=== PATIENT | female | born 1960 | race Caucasian/White ===

== ENCOUNTER 2022-12-10 17:09 | Inpatient (IN) | payer MEDICARE, OTHER ==
[~2022-12-10] VITALS: Ht 170.2 cm; Wt 54.4 kg
[2022-12-10 18:30] LABS: BASOPHILS # (AUTO) 0.1 K/uL (0.0-0.2); EOSINOPHILS # (AUTO) 0.3 K/uL (0.0-0.7); EOSINOPHILS % (AUTO) 1.8 % (0.0-6.0); HEMATOCRIT 22 % (33-45); LYMPHOCYTES # (AUTO) 1.6 K/uL (0.8-4.8); LYMPHOCYTES % (AUTO) 10.3 % (20.0-44.0); MEAN CORPUSCULAR HEMOGLOBIN 24 PG (26.0-33.0); MEAN CORPUSCULAR HGB CONC 32 g/dl (31.0-36.0); MEAN CORPUSCULAR VOLUME 75 fL (82-100); MONOCYTES # (AUTO) 0.9 K/uL (0.1-1.30); MONOCYTES % (AUTO) 5.8 % (2.0-12.0); NEUTROPHILS # (AUTO) 12.6 K/uL (1.8-8.9); NEUTROPHILS % (AUTO) 81.1 % (43.0-81.0); PLATELET COUNT (AUTO) 780 K/uL (150-450); RED BLOOD CELL COUNT(AUTO) 2.94 MIL/uL (4.0-5.2); RED CELL DISTRIBUTION WIDTH 24.6 % (11.5-15.0); WHITE BLOOD COUNT (AUTO) 15.5 K/uL (4.3-11.0)
[2022-12-10 18:41] LABS: INR 1.01 (0.91-1.10); PARTIAL THROMBOPLASTIN TIME 26.5 SEC (24.3-34.3); PROTHROMBIN TIME 10.6 SECS (9.2-11.1)
[2022-12-10 18:53] LABS: CALCIUM, SERUM 8.6 mg/dL (8.5-10.1); CREATININE 0.7 mg/dL (0.6-1.3); POTASSIUM 3.6 mmol/L (3.5-5.1)
[2022-12-10] MEDS ORDERED: ACETAMINOPHEN 325 MG TABLET PO ONE (19:00)
[2022-12-10] MEDS ORDERED: MORPHINE SULFATE INJ 2 MG/ML DISP.SYRIN IV ONE (19:00)
[2022-12-10] MEDS ORDERED: IOHEXOL-350 100 ML VIAL IV ONE (19:07)
[2022-12-10] MEDS ORDERED: IV NS 0.9% 250 ML IV ONE (19:07)
[2022-12-10] MEDS ORDERED: ACETAMINOPHEN 325 MG TABLET ONE (19:16)
[2022-12-10] MEDS ORDERED: MORPHINE SULFATE INJ 4 MG/ML DISP.SYRIN ONE (19:16)
[2022-12-10] MEDS ORDERED: QUET400T PO (19:17)
[2022-12-10] MEDS ORDERED: GENTLE IRON PO (19:17)
[2022-12-10] MEDS ORDERED: FLUT1DIS3 IH (19:17)
[2022-12-10] MEDS ORDERED: TEMA15CA5 PO (19:17)
[2022-12-10] MEDS ORDERED: GUAI-1189 PO (19:17)
[2022-12-10] MEDS ORDERED: CLON1TAB12 PO (19:17)
[2022-12-10] MEDS ORDERED: GABA-532 PO (19:17)
[2022-12-10] MEDS ORDERED: DIPH25TA25 PO (19:17)
[2022-12-10] MEDS ORDERED: SUCR1ORA15 PO (19:17)
[2022-12-10] MEDS ORDERED: MULT-594 PO (19:17)
[2022-12-10] MEDS ORDERED: ONDA4TAB5 PO (19:17)
[2022-12-10] MEDS ORDERED: MAG-151 PO (19:17)
[2022-12-10] MEDS ORDERED: ALBU8.5H8 IH (19:17)
[2022-12-10] MEDS ORDERED: ACET-868 PO (19:17)
[2022-12-10 19:57] LABS: LACTIC ACID 1.2 mmol/L (0.4-2.0)
[2022-12-10] MEDS ORDERED: PIPERACILLIN /TAZOBACTAM 3.375 G in IV D5W 50 ML IV ONE (20:00)
[2022-12-10 20:25] LABS: EOSINOPHILS % (MANUAL) 1 % (0-4); LYMPHOCYTES % (MANUAL) 10 % (16-48); NEUTROPHILS % (MANUAL) 89 (42-76)
[2022-12-10 20:27] LABS: ANISOCYTOSIS 1+; HYPOCHROMASIA 1+; PLATELET ESTIMATE INCREASED
[2022-12-10 20:28] LABS: OVALOCYTES 1+
[2022-12-10] MEDS ORDERED: PIPERACI/TAZO 3.375GM/D5W 50ML PB IV ONE (20:54)
[2022-12-10 23:00] VITALS: BP 121/74; TEMP 99.7; O2SAT 94
[2022-12-10] MEDS ORDERED: MAG HYDROX/AL HYDROX/SIMETH 30 ML UDC PO PRN (23:30)
[2022-12-10] MEDS ORDERED: MAGNESIUM HYDROXIDE 30 ML UDC PO PRN (23:30)
[2022-12-10] MEDS ORDERED: ENOXAPARIN SODIUM 40 MG/0.4 ML DISP.SYRIN SQ SCH (23:30)
[2022-12-10] MEDS ORDERED: ZOLPIDEM TARTRATE 5 MG TABLET PO PRN (23:30)
[2022-12-10] MEDS ORDERED: ACETAMINOPHEN 325 MG TABLET PO PRN (23:30)
[2022-12-10] MEDS ORDERED: Z GUARD REMEDY 4 OZ OINT TP PRN (23:30)
[2022-12-10 23:40] LABS: ALBUMIN 1.9 g/dL (3.4-5.0); BILIRUBIN,DIRECT 0.1 mg/dL (0.0-0.2); BILIRUBIN,TOTAL 0.2 mg/dL (0.2-1.0)
[2022-12-10] MEDS: IV D5/0.45 NACL 1,000 ML IV SCH (23:42)
[2022-12-11] VITALS (11 sets, daily range): BP systolic 108–138; BP diastolic 60–75; TEMP 97.8–98.7; O2SAT 93–97
[2022-12-11] MEDS: MORPHINE SULFATE INJ 2 MG/ML DISP.SYRIN IV PRN ×4 (02:59→18:37)
[2022-12-11] MEDS ORDERED: ZOSYN IVPB 3.375 G in IV D5W 50ml IV ONE (03:00)
[2022-12-11] MEDS ORDERED: PIPERACI/TAZO 3.375GM/D5W 50ML PB IV ONE (04:17)
[2022-12-11 05:53] LABS: BASOPHILS # (AUTO) 0.2 K/uL (0.0-0.2); BASOPHILS % (AUTO) 1.7 % (0.0-2.0); EOSINOPHILS # (AUTO) 0.5 K/uL (0.0-0.7); EOSINOPHILS % (AUTO) 3.7 % (0.0-6.0); HEMATOCRIT 24 % (33-45); HEMOGLOBIN 7.6 g/dL (11.5-14.8); LYMPHOCYTES # (AUTO) 1.5 K/uL (0.8-4.8); LYMPHOCYTES % (AUTO) 10.9 % (20.0-44.0); MEAN CORPUSCULAR HEMOGLOBIN 24 PG (26.0-33.0); MEAN CORPUSCULAR HGB CONC 32 g/dl (31.0-36.0); MEAN CORPUSCULAR VOLUME 77 fL (82-100); MONOCYTES # (AUTO) 1.4 K/uL (0.1-1.30); MONOCYTES % (AUTO) 10.1 % (2.0-12.0); NEUTROPHILS # (AUTO) 10.2 K/uL (1.8-8.9); NEUTROPHILS % (AUTO) 73.6 % (43.0-81.0); PLATELET COUNT (AUTO) 621 K/uL (150-450); RED BLOOD CELL COUNT(AUTO) 3.11 MIL/uL (4.0-5.2); RED CELL DISTRIBUTION WIDTH 22.1 % (11.5-15.0); WHITE BLOOD COUNT (AUTO) 13.9 K/uL (4.3-11.0)
[2022-12-11 06:26] LABS: THYROID STIMULATING HORMONE 2.562 uIU/mL (0.358-3.74)
[2022-12-11] MEDS ORDERED: GABAPENTIN 100 MG CAPSULE PO PRN (06:30)
[2022-12-11] MEDS ORDERED: ACETAMINOPHEN 325 MG TABLET PO PRN (06:30)
[2022-12-11 07:19] LABS: CREATININE 0.5 mg/dL (0.6-1.3); PHOSPHORUS 2.7 mg/dL (2.5-4.9); POTASSIUM 3.5 mmol/L (3.5-5.1)
[2022-12-11] MEDS: PANTOPRAZOLE 40 MG VIAL IV SCH (08:11)
[2022-12-11] MEDS ORDERED: ALBUTEROL FS 2.5 MG/0.5 ML VIAL.NEB NEB PRN (08:30)
[2022-12-11] MEDS ORDERED: GUAIFENESIN/D-METHORPHAN HB 5 ML UDC PO PRN (09:00)
[2022-12-11] MEDS ORDERED: GENTLE IRON PO SCH (09:00)
[2022-12-11] MEDS ORDERED: ONDANSETRON 4 MG TAB.RAPDIS PO PRN (09:00)
[2022-12-11] MEDS: clonazePAM 1 MG TABLET PO SCH ×2 (09:39→16:46)
[2022-12-11] MEDS: SUCRALFATE 1 G/10 ML UDC PO SCH ×3 (09:39→16:46)
[2022-12-11] MEDS: diphenhydrAMINE HCL 25 MG CAPSULE PO SCH (09:39)
[2022-12-11] MEDS: MULTIVITAMINS,THERAGRAN 1 UDTAB TABLET PO SCH ×2 (09:39→16:46)
[2022-12-11] MEDS: FLUTICASONE/VILANTEROL 1 EACH BLST.W.DEV IH SCH (09:40)
[2022-12-11] MEDS: ONDANSETRON HCL/PF 4 MG/2 ML VIAL IVP PRN (09:56)
[2022-12-11] MEDS: IV D5/0.45 NACL 1,000 ML IV SCH ×2 (09:58→20:20)
[2022-12-11] MEDS: ZOSYN IVPB 3.375 G in IV D5W 50ml IV SCH ×3 (11:53→21:12)
[2022-12-11] MEDS ORDERED: MAG HYDROX/AL HYDROX/SIMETH 30 ML UDC PO PRN (13:30)
[2022-12-11] MEDS: QUETIAPINE FUMARATE 100 MG TABLET PO SCH (21:07)
[2022-12-11] MEDS: TEMAZEPAM 15 MG CAPSULE PO SCH (21:08)
[2022-12-12 01:01] VITALS: BP 113/55; TEMP 98; O2SAT 96
[2022-12-12] MEDS: MORPHINE SULFATE INJ 2 MG/ML DISP.SYRIN IV PRN ×5 (04:30→22:43)
[2022-12-12] MEDS: ZOSYN IVPB 3.375 G in IV D5W 50ml IV SCH ×4 (04:31→21:08)
[2022-12-12 05:24] VITALS: BP 113/69; TEMP 98; O2SAT 93
[2022-12-12] MEDS: IV D5/0.45 NACL 1,000 ML IV SCH ×3 (05:39→22:54)
[2022-12-12 06:14] LABS: BASOPHILS % (AUTO) 0.5 % (0.0-2.0); EOSINOPHILS # (AUTO) 0.6 K/uL (0.0-0.7); EOSINOPHILS % (AUTO) 6.6 % (0.0-6.0); HEMATOCRIT 24 % (33-45); HEMOGLOBIN 7.6 g/dL (11.5-14.8); LYMPHOCYTES # (AUTO) 1.5 K/uL (0.8-4.8); LYMPHOCYTES % (AUTO) 16.2 % (20.0-44.0); MEAN CORPUSCULAR HEMOGLOBIN 25 PG (26.0-33.0); MEAN CORPUSCULAR HGB CONC 32 g/dl (31.0-36.0); MEAN CORPUSCULAR VOLUME 77 fL (82-100); MONOCYTES % (AUTO) 11.1 % (2.0-12.0); NEUTROPHILS % (AUTO) 65.6 % (43.0-81.0); PLATELET COUNT (AUTO) 574 K/uL (150-450); RED CELL DISTRIBUTION WIDTH 21.9 % (11.5-15.0); WHITE BLOOD COUNT (AUTO) 9.1 K/uL (4.3-11.0)
[2022-12-12 07:00] VITALS: BP 109/56; TEMP 98.3; O2SAT 93
[2022-12-12 07:36] LABS: ALBUMIN 1.5 g/dL (3.4-5.0); BILIRUBIN,TOTAL 0.3 mg/dL (0.2-1.0); CALCIUM, SERUM 7.9 mg/dL (8.5-10.1); CREATININE 0.5 mg/dL (0.6-1.3); MAGNESIUM 1.6 mg/dL (1.8-2.4); PHOSPHORUS 2.9 mg/dL (2.5-4.9); TOTAL PROTEIN, SERUM 5.1 g/dL (6.4-8.2)
[2022-12-12] MEDS: SUCRALFATE 1 G/10 ML UDC PO SCH (08:29)
[2022-12-12] MEDS: diphenhydrAMINE HCL 25 MG CAPSULE PO SCH (08:30)
[2022-12-12] MEDS: clonazePAM 1 MG TABLET PO SCH ×2 (08:30→17:11)
[2022-12-12] MEDS: PANTOPRAZOLE 40 MG VIAL IV SCH (08:30)
[2022-12-12] MEDS: MULTIVITAMINS,THERAGRAN 1 UDTAB TABLET PO SCH ×3 (08:30→17:11)
[2022-12-12] MEDS: FLUTICASONE/VILANTEROL 1 EACH BLST.W.DEV IH SCH (08:41)
[2022-12-12] MEDS: ONDANSETRON HCL/PF 4 MG/2 ML VIAL IVP PRN ×2 (09:06→15:22)
[2022-12-12] MEDS ORDERED: ANESTHESIA TRAY IN PYXIS 1 EA TRAY MC ONE (12:33)
[2022-12-12] MEDS: SUCRALFATE 1 G TABLET PO SCH ×3 (12:54→17:11)
[2022-12-12] MEDS ORDERED: Magnesium 1GM/D5W 100ML PREMIX 100 ML IV SCH (13:30)
[2022-12-12] MEDS ORDERED: POTASSIUM CL. PREMIX PERIPHER. 50 ML IV SCH (13:30)
[2022-12-12 16:00] VITALS: BP 107/57; TEMP 98.6; O2SAT 100
[2022-12-12] MEDS ORDERED: POTASSIUM CHLORIDE 20 MEQ POWDER PACKET PO SCH (16:00)
[2022-12-12] MEDS: MAGNESIUM OXIDE 400 MG TABLET PO ONE ×2 (16:30→17:12)
[2022-12-12 20:00] VITALS: BP 92/55; TEMP 98.1; O2SAT 94
[2022-12-12] MEDS: QUETIAPINE FUMARATE 100 MG TABLET PO SCH (21:09)
[2022-12-12] MEDS: TEMAZEPAM 15 MG CAPSULE PO SCH (21:09)
[2022-12-12 22:00] VITALS: BP 92/55; TEMP 98.1; O2SAT 94
[2022-12-13] MEDS: ZOSYN IVPB 3.375 G in IV D5W 50ml IV SCH ×3 (05:00→10:02)
[2022-12-13] MEDS: MORPHINE SULFATE INJ 2 MG/ML DISP.SYRIN IV PRN ×2 (05:51→09:51)
[2022-12-13 06:53] LABS: BASOPHILS % (AUTO) 0.7 % (0.0-2.0); EOSINOPHILS # (AUTO) 0.7 K/uL (0.0-0.7); EOSINOPHILS % (AUTO) 10.9 % (0.0-6.0); HEMATOCRIT 24 % (33-45); HEMOGLOBIN 7.6 g/dL (11.5-14.8); LYMPHOCYTES # (AUTO) 1.8 K/uL (0.8-4.8); LYMPHOCYTES % (AUTO) 26.4 % (20.0-44.0); MEAN CORPUSCULAR HEMOGLOBIN 25 PG (26.0-33.0); MEAN CORPUSCULAR HGB CONC 32 g/dl (31.0-36.0); MEAN CORPUSCULAR VOLUME 77 fL (82-100); MONOCYTES # (AUTO) 0.8 K/uL (0.1-1.30); MONOCYTES % (AUTO) 12.2 % (2.0-12.0); NEUTROPHILS # (AUTO) 3.4 K/uL (1.8-8.9); NEUTROPHILS % (AUTO) 49.8 % (43.0-81.0); PLATELET COUNT (AUTO) 549 K/uL (150-450); RED BLOOD CELL COUNT(AUTO) 3.08 MIL/uL (4.0-5.2); RED CELL DISTRIBUTION WIDTH 22.2 % (11.5-15.0); WHITE BLOOD COUNT (AUTO) 6.7 K/uL (4.3-11.0)
[2022-12-13 07:20] LABS: ALBUMIN 1.5 g/dL (3.4-5.0); BILIRUBIN,TOTAL 0.2 mg/dL (0.2-1.0); CALCIUM, SERUM 8.3 mg/dL (8.5-10.1); CREATININE 0.4 mg/dL (0.6-1.3); MAGNESIUM 1.9 mg/dL (1.8-2.4); PHOSPHORUS 4.7 mg/dL (2.5-4.9); POTASSIUM 3.4 mmol/L (3.5-5.1); TOTAL PROTEIN, SERUM 5.1 g/dL (6.4-8.2)
[2022-12-13 08:00] VITALS: BP 113/73; TEMP 98.8; O2SAT 100
[2022-12-13] MEDS: MULTIVITAMINS,THERAGRAN 1 UDTAB TABLET PO SCH (08:50)
[2022-12-13] MEDS: diphenhydrAMINE HCL 25 MG CAPSULE PO SCH (08:50)
[2022-12-13] MEDS: PANTOPRAZOLE 40 MG VIAL IV SCH (08:50)
[2022-12-13] MEDS: clonazePAM 1 MG TABLET PO SCH (08:50)
[2022-12-13] MEDS: FLUTICASONE/VILANTEROL 1 EACH BLST.W.DEV IH SCH (08:58)
[2022-12-13] MEDS: SUCRALFATE 1 G TABLET PO SCH (09:00)
[2022-12-13] MEDS: SUCRALFATE 1 G/10 ML UDC PO SCH ×2 (09:08→12:28)
[2022-12-13] MEDS ORDERED: POTASSIUM CHLORIDE 20 MEQ POWDER PACKET PO ONE (09:30)
== END 2022-12-13 13:29 | DRG 391 ==
LOC: ER 17:14 → TELE 20:14 → MED 12-12 15:57
PROVIDERS: ADMIT Student in an Organized Health Care Education/Training Program
PROC: 30233N1 Transfusion of Nonautologous Red Blood Cells into Peripheral Vein, Percutaneous Approach (ICD-10-PCS; 2022-12-10)
PROC: 0D738ZZ Dilation of Lower Esophagus, Via Natural or Artificial Opening Endoscopic (ICD-10-PCS; principal; 2022-12-12)
PROC: 0DB68ZX Excision of Stomach, Via Natural or Artificial Opening Endoscopic, Diagnostic (ICD-10-PCS; 2022-12-12)
DX: K22.2 Esophageal obstruction (principal); E43 Unspecified severe protein-calorie malnutrition; J18.9 Pneumonia, unspecified organism; K29.61 Other gastritis with bleeding; D62 Acute posthemorrhagic anemia; K86.1 Other chronic pancreatitis; K31.9 Disease of stomach and duodenum, unspecified; R59.0 Localized enlarged lymph nodes; K21.9 Gastro-esophageal reflux disease without esophagitis; G62.9 Polyneuropathy, unspecified; K44.9 Diaphragmatic hernia without obstruction or gangrene; J44.9 Chronic obstructive pulmonary disease, unspecified; Z90.3 Acquired absence of stomach [part of]; K72.90 Hepatic failure, unspecified without coma; M19.90 Unspecified osteoarthritis, unspecified site; Z66 Do not resuscitate; F25.9 Schizoaffective disorder, unspecified; F43.10 Post-traumatic stress disorder, unspecified; F41.9 Anxiety disorder, unspecified; G47.00 Insomnia, unspecified; G47.419 Narcolepsy without cataplexy; K83.8 Other specified diseases of biliary tract; Z79.51 Long term (current) use of inhaled steroids; D75.839 Thrombocytosis, unspecified; E83.42 Hypomagnesemia; E87.6 Hypokalemia; Z88.8 Allergy status to other drugs, medicaments and biological substances; Z79.899 Other long term (current) drug therapy; R13.10 Dysphagia, unspecified; K86.9 Disease of pancreas, unspecified; K29.70 Gastritis, unspecified, without bleeding
CPT/HCPCS: 36415; 71045-TC; 76700-TC; 80048-TC; 80053-TC; 80076-TC; 83605-TC; 83735-TC; 84100-TC; 84443-TC; 84484-TC; 85025-TC; 85730-TC; 86850-TC; 87040-TC; 87081-TC; 88305-TC; 88312-TC; 88313-TC; 88341; 88342; A4223; C1726; C9113; G0378; J2270; J2405; J2543; J2704; J3490; J7030; J7040; J7050; J7060; P9016; Q0163; Q9967

== ENCOUNTER 2022-12-28 15:37 | Inpatient (IN) | payer MEDICARE, OTHER ==
[~2022-12-28] VITALS: Ht 170.2 cm; Wt 52.2 kg
[~2022-12-28 15:37] MED LIST: ACET-868 PO; ALBU8.5H8 IH; CLON1TAB12 PO; DIPH25TA25 PO; FLUT1DIS3 IH; GABA-532 PO; GENTLE IRON PO; GUAI-1189 PO; MAG-151 PO; MULT-594 PO; ONDA4TAB5 PO; QUET400T PO; SUCR1ORA15 PO; TEMA15CA5 PO
[2022-12-28] MEDS ORDERED: IV NS 0.9% 1,000 ML BAG IV ONE (16:30)
[2022-12-28 17:06] LABS: CALCIUM, SERUM 8.1 mg/dL (8.5-10.1); CREATININE 0.6 mg/dL (0.6-1.3)
[2022-12-28 17:12] LABS: BASOPHILS # (AUTO) 0.1 K/uL (0.0-0.2); BASOPHILS % (AUTO) 0.5 % (0.0-2.0); EOSINOPHILS # (AUTO) 0.1 K/uL (0.0-0.7); EOSINOPHILS % (AUTO) 0.8 % (0.0-6.0); LYMPHOCYTES % (AUTO) 12.1 % (20.0-44.0); MEAN CORPUSCULAR HEMOGLOBIN 23 PG (26.0-33.0); MEAN CORPUSCULAR HGB CONC 29 g/dl (31.0-36.0); MEAN CORPUSCULAR VOLUME 78 fL (82-100); MONOCYTES # (AUTO) 1.1 K/uL (0.1-1.30); MONOCYTES % (AUTO) 6.9 % (2.0-12.0); NEUTROPHILS # (AUTO) 12.9 K/uL (1.8-8.9); NEUTROPHILS % (AUTO) 79.7 % (43.0-81.0); PLATELET COUNT (AUTO) 759 K/uL (150-450); RED BLOOD CELL COUNT(AUTO) 2.22 MIL/uL (4.0-5.2); RED CELL DISTRIBUTION WIDTH 20.7 % (11.5-15.0); WHITE BLOOD COUNT (AUTO) 16.3 K/uL (4.3-11.0)
[2022-12-28 17:13] LABS: HEMOGLOBIN 5.1 g/dL (11.5-14.8)
[2022-12-28 17:14] LABS: HEMATOCRIT 17 % (33-45)
[2022-12-28 17:20] LABS: ALBUMIN 1.9 g/dL (3.4-5.0); BILIRUBIN,DIRECT 0.1 mg/dL (0.0-0.2); BILIRUBIN,TOTAL 0.1 mg/dL (0.2-1.0); TOTAL PROTEIN, SERUM 5.8 g/dL (6.4-8.2)
[2022-12-28] MEDS ORDERED: clonazePAM 1 MG TABLET ONE (17:27)
[2022-12-28] MEDS ORDERED: ACETAMINOPHEN ES 500 MG TABLET ONE (17:28)
[2022-12-28] MEDS ORDERED: ACETAMINOPHEN ES 500 MG TABLET PO ONE (17:30)
[2022-12-28] MEDS ORDERED: clonazePAM 1 MG TABLET PO ONE (17:30)
[2022-12-28] MEDS ORDERED: TEMA22.53 PO (17:37)
[2022-12-28 17:52] LABS: EOSINOPHILS % (MANUAL) 2 % (0-4); HYPOCHROMASIA 2+; LYMPHOCYTES % (MANUAL) 8 % (16-48); MONOCYTES % (MANUAL) 4 % (0-11.0); NEUTROPHILS % (MANUAL) 86 (42-76); PLATELET ESTIMATE INCREASED
[2022-12-28 17:53] LABS: ANISOCYTOSIS 1+
[2022-12-28 17:54] LABS: OVALOCYTES 1+
[2022-12-28] MEDS ORDERED: ONDANSETRON HCL/PF 4 MG/2 ML VIAL ONE (19:37)
[2022-12-28] MEDS ORDERED: ONDANSETRON HCL/PF - ER 4 MG/2 ML VIAL IV ONE (20:00)
[2022-12-28 21:47] VITALS: BP 149/69; TEMP 100.4; O2SAT 98
[2022-12-28 21:50] VITALS: BP 149/69; TEMP 100.4; O2SAT 98
[2022-12-28] MEDS ORDERED: Z GUARD REMEDY 4 OZ OINT TP PRN (22:00)
[2022-12-28] MEDS ORDERED: ACETAMINOPHEN 325 MG TABLET PO PRN (22:00)
[2022-12-28] MEDS ORDERED: ONDANSETRON HCL/PF 4 MG/2 ML VIAL IVP PRN (22:00)
[2022-12-28] MEDS ORDERED: ACETAMINOPHEN 650 MG/SUPP.RECT RC PRN (22:00)
[2022-12-28] MEDS: PANTOPRAZOLE 40 MG VIAL IV SCH (22:09)
[2022-12-28] MEDS: MORPHINE SULFATE INJ 2 MG/ML DISP.SYRIN IV PRN (22:10)
[2022-12-28] MEDS: IV D5/ 0.9% NACL 1,000 ML IV PRN (23:28)
[2022-12-28] MEDS ORDERED: TEMAZEPAM 7.5 MG CAPSULE PO PRN ×2 (23:30)
[2022-12-28] MEDS ORDERED: METOCLOPRAMIDE HCL 10 MG/2 ML VIAL IV PRN (23:30)
[2022-12-28] MEDS ORDERED: TEMAZEPAM 15 MG CAPSULE PO PRN (23:30)
[2022-12-28] MEDS: METOCLOPRAMIDE HCL 10 MG/2 ML VIAL IV PRN (23:39)
[2022-12-29] VITALS (7 sets, daily range): BP systolic 120–146; BP diastolic 61–79; TEMP 98.4–100; O2SAT 96
[2022-12-29] MEDS ORDERED: QUETIAPINE FUMARATE 100 MG TABLET PO SCH (00:30)
[2022-12-29] MEDS ORDERED: GABAPENTIN 100 MG CAPSULE PO PRN (01:30)
[2022-12-29] MEDS: MORPHINE SULFATE INJ 2 MG/ML DISP.SYRIN IV PRN ×5 (02:13→21:17)
[2022-12-29 02:20] LABS: APPEARANCE,URINE CLEAR (CLEAR); BILIRUBIN,URINE 1+ (NEGATIVE); BLOOD, URINE NEGATIVE Ery/uL (NEGATIVE); COLOR,URINE YELLOW (YELLOW); KETONES,URINE 3+ mg/dL (NEGATIVE); LEUKOCYTE ESTERASE ,URINE NEGATIVE (NEGATIVE); NITRITE, URINE NEGATIVE (NEGATIVE); PROTEIN,URINE NEGATIVE (NEGATIVE); UGLUCOSE NEGATIVE (NEGATIVE); UROBILINOGEN,URINE 0.2 EU/dL (0.2)
[2022-12-29 02:23] LABS: ADD URINE CULTURE NO; BACTERIA,URINE Rare /HPF (None Seen); RBC,URINE 0-2 /HPF (0-2); SQUAMOUS EPITHELIAL CELL,UR Few /HPF (None Seen); WBC,URINE 0-2 /HPF (0-3)
[2022-12-29 06:30] LABS: BASOPHILS # (AUTO) 0.1 K/uL (0.0-0.2); BASOPHILS % (AUTO) 0.6 % (0.0-2.0); EOSINOPHILS # (AUTO) 0.3 K/uL (0.0-0.7); EOSINOPHILS % (AUTO) 2.6 % (0.0-6.0); HEMATOCRIT 23 % (33-45); HEMOGLOBIN 7.3 g/dL (11.5-14.8); LYMPHOCYTES # (AUTO) 2.1 K/uL (0.8-4.8); LYMPHOCYTES % (AUTO) 17.5 % (20.0-44.0); MEAN CORPUSCULAR HEMOGLOBIN 25 PG (26.0-33.0); MEAN CORPUSCULAR HGB CONC 32 g/dl (31.0-36.0); MEAN CORPUSCULAR VOLUME 80 fL (82-100); MONOCYTES # (AUTO) 1.2 K/uL (0.1-1.30); MONOCYTES % (AUTO) 9.8 % (2.0-12.0); NEUTROPHILS # (AUTO) 8.2 K/uL (1.8-8.9); NEUTROPHILS % (AUTO) 69.5 % (43.0-81.0); PLATELET COUNT (AUTO) 553 K/uL (150-450); RED BLOOD CELL COUNT(AUTO) 2.88 MIL/uL (4.0-5.2); RED CELL DISTRIBUTION WIDTH 18.6 % (11.5-15.0); WHITE BLOOD COUNT (AUTO) 11.8 K/uL (4.3-11.0)
[2022-12-29 06:53] LABS: ALBUMIN 1.6 g/dL (3.4-5.0); BILIRUBIN,TOTAL 0.5 mg/dL (0.2-1.0); CALCIUM, SERUM 7.8 mg/dL (8.5-10.1); CREATININE 0.5 mg/dL (0.6-1.3); MAGNESIUM 1.7 mg/dL (1.8-2.4); PHOSPHORUS 1.7 mg/dL (2.5-4.9); POTASSIUM 3.4 mmol/L (3.5-5.1)
[2022-12-29] MEDS: SUCRALFATE 1 G/10 ML UDC PO SCH ×3 (07:30→16:32)
[2022-12-29] MEDS ORDERED: IOHEXOL-300 100 ML VIAL IV ONE (08:30)
[2022-12-29] MEDS ORDERED: MAGNESIUM OXIDE 400 MG TABLET PO ONE ×2 (09:00→13:00)
[2022-12-29] MEDS: MULTIVITAMINS,THERAGRAN 1 UDTAB TABLET PO SCH ×2 (09:00→16:32)
[2022-12-29] MEDS: FLUTICASONE/VILANTEROL 1 EACH BLST.W.DEV IH SCH ×2 (09:00→09:04)
[2022-12-29] MEDS ORDERED: clonazePAM 1 MG TABLET PO SCH (09:00)
[2022-12-29] MEDS ORDERED: POTASSIUM CHLORIDE 20 MEQ TAB.PRT.SR PO SCH (09:00)
[2022-12-29] MEDS ORDERED: POTASSIUM CL. PREMIX PERIPHER. 50 ML IV SCH (10:30)
[2022-12-29] MEDS: PANTOPRAZOLE 40 MG VIAL IV SCH ×2 (10:51→21:14)
[2022-12-29] MEDS: METOCLOPRAMIDE HCL 10 MG/2 ML VIAL IV PRN ×2 (10:51→16:33)
[2022-12-29] MEDS ORDERED: POTASSIUM CHLORIDE 10 MEQ TABLET.SA PO ONE (11:30)
[2022-12-29] MEDS ORDERED: Magnesium 1GM/D5W 100ML PREMIX 100 ML IV SCH (12:00)
[2022-12-29] MEDS ORDERED: K PHOS NEUTRAL 250 MG TABLET PO ONE (12:00)
[2022-12-29] MEDS: clonazePAM 1 MG TABLET PO SCH ×2 (12:08→20:29)
[2022-12-29] MEDS ORDERED: Sodium Phosphate 15 MMOL in IV NS 0.9% 245 ML IV SCH (14:00)
[2022-12-29 18:03] LABS: THYROID STIMULATING HORMONE 6.259 uIU/mL (0.358-3.74)
[2022-12-29] MEDS: TEMAZEPAM 7.5 MG CAPSULE PO SCH (21:13)
[2022-12-29] MEDS: QUETIAPINE FUMARATE 100 MG TABLET PO SCH (21:13)
[2022-12-30] VITALS (10 sets, daily range): BP systolic 106–129; BP diastolic 61–79; TEMP 97–99.3; O2SAT 97
[2022-12-30] MEDS: METOCLOPRAMIDE HCL 10 MG/2 ML VIAL IV PRN ×2 (04:13→13:56)
[2022-12-30] MEDS: MORPHINE SULFATE INJ 2 MG/ML DISP.SYRIN IV PRN ×4 (04:14→20:53)
[2022-12-30] MEDS: IV D5/ 0.9% NACL 1,000 ML IV PRN (04:29)
[2022-12-30 07:06] LABS: BASOPHILS # (AUTO) 0.1 K/uL (0.0-0.2); BASOPHILS % (AUTO) 0.9 % (0.0-2.0); EOSINOPHILS # (AUTO) 0.7 K/uL (0.0-0.7); EOSINOPHILS % (AUTO) 8.3 % (0.0-6.0); HEMATOCRIT 21 % (33-45); LYMPHOCYTES # (AUTO) 1.5 K/uL (0.8-4.8); LYMPHOCYTES % (AUTO) 17.7 % (20.0-44.0); MEAN CORPUSCULAR HEMOGLOBIN 26 PG (26.0-33.0); MEAN CORPUSCULAR HGB CONC 32 g/dl (31.0-36.0); MEAN CORPUSCULAR VOLUME 80 fL (82-100); MONOCYTES # (AUTO) 0.8 K/uL (0.1-1.30); MONOCYTES % (AUTO) 10.1 % (2.0-12.0); NEUTROPHILS # (AUTO) 5.3 K/uL (1.8-8.9); PLATELET COUNT (AUTO) 481 K/uL (150-450); RED BLOOD CELL COUNT(AUTO) 2.62 MIL/uL (4.0-5.2); RED CELL DISTRIBUTION WIDTH 18.9 % (11.5-15.0); WHITE BLOOD COUNT (AUTO) 8.4 K/uL (4.3-11.0)
[2022-12-30 07:19] LABS: IRON, SERUM 8 ug/dl (50-175); TOTAL IRON BINDING CAPACITY 136 ug/dl (250-450)
[2022-12-30 07:28] LABS: CALCIUM, SERUM 7.8 mg/dL (8.5-10.1); CREATININE 0.4 mg/dL (0.6-1.3); MAGNESIUM 1.8 mg/dL (1.8-2.4); POTASSIUM 3.3 mmol/L (3.5-5.1)
[2022-12-30] MEDS: SUCRALFATE 1 G/10 ML UDC PO SCH ×3 (07:30→17:27)
[2022-12-30 07:32] LABS: HEMOGLOBIN 6.7 g/dL (11.5-14.8)
[2022-12-30 07:41] LABS: FERRITIN 22 ng/mL (8-388)
[2022-12-30] MEDS: LORAZEPAM INJ 2 MG/ML VIAL IV PRN ×2 (08:17→15:22)
[2022-12-30] MEDS: FLUTICASONE/VILANTEROL 1 EACH BLST.W.DEV IH SCH (08:18)
[2022-12-30] MEDS: clonazePAM 1 MG TABLET PO SCH ×2 (08:18→16:03)
[2022-12-30] MEDS: MULTIVITAMINS,THERAGRAN 1 UDTAB TABLET PO SCH ×2 (08:18→16:03)
[2022-12-30] MEDS: POTASSIUM CL. PREMIX PERIPHER. 50 ML IV SCH ×2 (09:00→10:00)
[2022-12-30] MEDS ORDERED: ACETAMINOPHEN 325 MG TABLET PO ONE (09:30)
[2022-12-30] MEDS ORDERED: diphenhydrAMINE HCL 50 MG/ML VIAL IV ONE (09:30)
[2022-12-30] MEDS: SOD FERRIC GLUC 125 MG in IV NS 0.9% 100 ML IV SCH (13:51)
[2022-12-30] MEDS: PANTOPRAZOLE 40 MG VIAL IV SCH ×2 (13:56→22:00)
[2022-12-30 17:09] LABS: ANISOCYTOSIS 1+; EOSINOPHILS % (MANUAL) 6 % (0-4); HYPOCHROMASIA 1+; LYMPHOCYTES % (MANUAL) 14 % (16-48); MONOCYTES % (MANUAL) 2 % (0-11.0); NEUTROPHILS % (MANUAL) 78 (42-76); PLATELET ESTIMATE INCREASED
[2022-12-30 17:10] LABS: OVALOCYTES 1+; ROULEAUX 1+
[2022-12-30] MEDS ORDERED: ANESTHESIA TRAY IN PYXIS 1 EA TRAY MC ONE (18:52)
[2022-12-30] MEDS: SUCRALFATE 1 G/10 ML UDC GT SCH (22:24)
[2022-12-30] MEDS: QUETIAPINE FUMARATE 100 MG TABLET PO SCH (22:25)
[2022-12-30] MEDS: TEMAZEPAM 7.5 MG CAPSULE PO SCH (22:25)
[2022-12-30] MEDS ORDERED: clonazePAM 1 MG TABLET PO ONE (23:03)
[2022-12-31 06:22] LABS: BASOPHILS # (AUTO) 0.1 K/uL (0.0-0.2); EOSINOPHILS # (AUTO) 0.9 K/uL (0.0-0.7); HEMATOCRIT 25 % (33-45); HEMOGLOBIN 8.3 g/dL (11.5-14.8); LYMPHOCYTES # (AUTO) 1.3 K/uL (0.8-4.8); LYMPHOCYTES % (AUTO) 18.5 % (20.0-44.0); MEAN CORPUSCULAR HEMOGLOBIN 27 PG (26.0-33.0); MEAN CORPUSCULAR HGB CONC 33 g/dl (31.0-36.0); MEAN CORPUSCULAR VOLUME 81 fL (82-100); MONOCYTES # (AUTO) 0.9 K/uL (0.1-1.30); MONOCYTES % (AUTO) 12.3 % (2.0-12.0); NEUTROPHILS # (AUTO) 3.9 K/uL (1.8-8.9); NEUTROPHILS % (AUTO) 55.2 % (43.0-81.0); PLATELET COUNT (AUTO) 456 K/uL (150-450); RED BLOOD CELL COUNT(AUTO) 3.12 MIL/uL (4.0-5.2); RED CELL DISTRIBUTION WIDTH 18.3 % (11.5-15.0); WHITE BLOOD COUNT (AUTO) 7.1 K/uL (4.3-11.0)
[2022-12-31] MEDS: SUCRALFATE 1 G/10 ML UDC GT SCH ×4 (07:30→21:15)
[2022-12-31 08:00] VITALS: BP 121/82; TEMP 97.7; O2SAT 96
[2022-12-31 08:06] LABS: IMMUNOGLOBULIN A, SERUM 320 mg/dL (87-352); IMMUNOGLOBULIN G, SERUM 752 mg/dL (586-1602)
[2022-12-31] MEDS: MORPHINE SULFATE INJ 2 MG/ML DISP.SYRIN IV PRN ×4 (09:05→20:48)
[2022-12-31] MEDS: SUCRALFATE 1 G/10 ML UDC PO SCH ×3 (09:30→17:10)
[2022-12-31] MEDS: MULTIVITAMINS,THERAGRAN 1 UDTAB TABLET PO SCH ×3 (09:30→17:07)
[2022-12-31] MEDS: clonazePAM 1 MG TABLET PO SCH ×2 (09:31→17:07)
[2022-12-31] MEDS: FLUTICASONE/VILANTEROL 1 EACH BLST.W.DEV IH SCH (09:31)
[2022-12-31] MEDS: PANTOPRAZOLE 40 MG VIAL IV SCH (10:26)
[2022-12-31 11:07] LABS: *SPE A/G RATIO 0.7 (0.7-1.7); *SPE ALBUMIN 1.8 g/dL (2.9-4.4); *SPE ALPHA-1-GLOBULIN 0.3 g/dL (0.0-0.4); *SPE ALPHA-2-GLOBULIN 0.7 g/dL (0.4-1.0); *SPE BETA GLOBULIN 0.8 g/dL (0.7-1.3); *SPE GLOBULIN, TOTAL 2.6 g/dL (2.2-3.9); *SPE M-SPIKE Not Observed g/dL (Not Observed); *SPE PROTEIN TOTAL 4.4 g/dL (6.0-8.5); *SPEGAMMA GLOBULIN 0.8 g/dL (0.4-1.8)
[2022-12-31] MEDS: METOCLOPRAMIDE HCL 10 MG/2 ML VIAL IV PRN ×2 (12:17→20:59)
[2022-12-31] MEDS: SOD FERRIC GLUC 125 MG in IV NS 0.9% 100 ML IV SCH (14:00)
[2022-12-31 14:07] LABS: CARBOHYDRATE AG 19-9 7 U/mL (0-35); FOLIC ACID 15.3 ng/mL (>3.0); FREE KAPPA LT CHAINS SERUM 31.1 mg/L (3.3-19.4); FREE LAMBDA LT CHAIN SERUM 28.3 mg/L (5.7-26.3)
[2022-12-31 15:58] VITALS: BP 112/72; TEMP 98.1; O2SAT 97
[2022-12-31] MEDS ORDERED: PANTOPRAZOLE 40 MG/PACK PACK PO SCH (21:00)
[2022-12-31] MEDS: TEMAZEPAM 7.5 MG CAPSULE PO SCH (21:15)
[2022-12-31] MEDS: QUETIAPINE FUMARATE 100 MG TABLET PO SCH (21:15)
[2023-01-02 18:06] LABS: IMMUNOGLOBULIN M, SERUM 64 mg/dL (26-217)
== END 2022-12-31 22:00 | DRG 377 ==
LOC: ER 15:47 → MED 20:54
PROVIDERS: ADMIT Nurse Practitioner Family
PROC: 30233N1 Transfusion of Nonautologous Red Blood Cells into Peripheral Vein, Percutaneous Approach (ICD-10-PCS; 2022-12-28)
PROC: 0DB68ZX Excision of Stomach, Via Natural or Artificial Opening Endoscopic, Diagnostic (ICD-10-PCS; principal; 2022-12-30)
DX: K25.4 Chronic or unspecified gastric ulcer with hemorrhage (principal); E43 Unspecified severe protein-calorie malnutrition; Z68.1 Body mass index [BMI] 19.9 or less, adult; K86.1 Other chronic pancreatitis; M48.54XA Collapsed vertebra, not elsewhere classified, thoracic region, initial encounter for fracture; R64 Cachexia; R65.10 Systemic inflammatory response syndrome (SIRS) of non-infectious origin without acute organ dysfunction; E87.20 Acidosis, unspecified; D62 Acute posthemorrhagic anemia; K22.2 Esophageal obstruction; K29.60 Other gastritis without bleeding; K31.84 Gastroparesis; Z66 Do not resuscitate; Z20.822 Contact with and (suspected) exposure to COVID-19; D69.6 Thrombocytopenia, unspecified; D50.9 Iron deficiency anemia, unspecified; K21.00 Gastro-esophageal reflux disease with esophagitis, without bleeding; K72.90 Hepatic failure, unspecified without coma; K44.9 Diaphragmatic hernia without obstruction or gangrene; M19.90 Unspecified osteoarthritis, unspecified site; G62.9 Polyneuropathy, unspecified; J44.9 Chronic obstructive pulmonary disease, unspecified; K21.9 Gastro-esophageal reflux disease without esophagitis; F41.9 Anxiety disorder, unspecified; F25.9 Schizoaffective disorder, unspecified; F43.10 Post-traumatic stress disorder, unspecified; G47.00 Insomnia, unspecified; G47.419 Narcolepsy without cataplexy; E83.42 Hypomagnesemia; Z88.0 Allergy status to penicillin; Z88.8 Allergy status to other drugs, medicaments and biological substances; Z79.51 Long term (current) use of inhaled steroids; Z79.899 Other long term (current) drug therapy; K29.90 Gastroduodenitis, unspecified, without bleeding; E88.09 Other disorders of plasma-protein metabolism, not elsewhere classified; E87.6 Hypokalemia; E83.39 Other disorders of phosphorus metabolism; D72.829 Elevated white blood cell count, unspecified; Z98.890 Other specified postprocedural states; M40.204 Unspecified kyphosis, thoracic region; Z87.19 Personal history of other diseases of the digestive system; F15.11 Other stimulant abuse, in remission; R59.0 Localized enlarged lymph nodes; K86.9 Disease of pancreas, unspecified; Z90.49 Acquired absence of other specified parts of digestive tract
CPT/HCPCS: 36415; 71045-TC; 71260-TC; 74181-TC; 80048-TC; 80053-TC; 80076-TC; 81001; 82378; 82607-TC; 82728-TC; 82784; 83540-TC; 83615-TC; 83690-TC; 83735-TC; 84100-TC; 84155; 84165; 84439-TC; 84443-TC; 84484-TC; 85025-TC; 85027-TC; 86301; 86316; 86334; 86850-TC; 87040-TC; 87081-TC; A4223; A9563; C9113; G0378; J1200; J2060; J2270; J2405; J2704; J2765; J2916; J3480; J3490; J7030; J7042; J7050; P9016; Q9967

== ENCOUNTER 2023-03-19 20:09 | Inpatient (IN) | payer MEDICARE, OTHER ==
[~2023-03-19] VITALS: Ht 170.2 cm; Wt 48.5 kg
[~2023-03-19 20:09] MED LIST changes: +SOD FERRIC GLUC 125 MG in IV NS 0.9% 100 ML IV SCH; -TEMA15CA5 PO; +TEMA22.53 PO
[2023-03-19] MEDS ORDERED: ACETAMINOPHEN 325 MG TABLET PO PRN (21:00)
[2023-03-19] MEDS ORDERED: Z GUARD REMEDY 4 OZ OINT TP PRN (21:00)
[2023-03-19] MEDS ORDERED: MAG HYDROX/AL HYDROX/SIMETH 30 ML UDC PO PRN (21:00)
[2023-03-19] MEDS ORDERED: MAGNESIUM HYDROXIDE 30 ML UDC PO PRN (21:00)
[2023-03-19] MEDS ORDERED: PANTOPRAZOLE 40 MG VIAL IV SCH (21:00)
[2023-03-19] MEDS ORDERED: ONDANSETRON HCL/PF 4 MG/2 ML VIAL IVP PRN (21:00)
[2023-03-19 21:21] LABS: BASOPHILS # (AUTO) 0.1 K/uL (0.0-0.2); BASOPHILS % (AUTO) 1.4 % (0.0-2.0); EOSINOPHILS # (AUTO) 0.4 K/uL (0.0-0.7); EOSINOPHILS % (AUTO) 3.6 % (0.0-6.0); HEMATOCRIT 24 % (33-45); HEMOGLOBIN 7.2 g/dL (11.5-14.8); LYMPHOCYTES # (AUTO) 1.2 K/uL (0.8-4.8); LYMPHOCYTES % (AUTO) 11.4 % (20.0-44.0); MEAN CORPUSCULAR HEMOGLOBIN 24 PG (26.0-33.0); MEAN CORPUSCULAR HGB CONC 31 g/dl (31.0-36.0); MEAN CORPUSCULAR VOLUME 78 fL (82-100); MONOCYTES % (AUTO) 9.1 % (2.0-12.0); NEUTROPHILS # (AUTO) 7.9 K/uL (1.8-8.9); NEUTROPHILS % (AUTO) 74.5 % (43.0-81.0); PLATELET COUNT (AUTO) 611 K/uL (150-450); RED BLOOD CELL COUNT(AUTO) 3.02 MIL/uL (4.0-5.2); RED CELL DISTRIBUTION WIDTH 18.4 % (11.5-15.0); WHITE BLOOD COUNT (AUTO) 10.6 K/uL (4.3-11.0)
[2023-03-19] MEDS ORDERED: ALBUTEROL FS 2.5 MG/3 ML VIAL.NEB NEB PRN (21:30)
[2023-03-19 21:32] LABS: CALCIUM, SERUM 9.9 mg/dL (8.5-10.1); CREATININE 0.8 mg/dL (0.6-1.3); INR 1.02 (0.91-1.10); PARTIAL THROMBOPLASTIN TIME 25.4 SEC (24.3-34.3); POTASSIUM 4.5 mmol/L (3.5-5.1); PROTHROMBIN TIME 10.8 SECS (9.2-11.1)
[2023-03-19 21:37] LABS: ALBUMIN 2.1 g/dL (3.4-5.0); BILIRUBIN,TOTAL 0.1 mg/dL (0.2-1.0); TOTAL PROTEIN, SERUM 6.8 g/dL (6.4-8.2)
[2023-03-19 23:05] LABS: IRON, SERUM 21 ug/dl (50-175); TOTAL IRON BINDING CAPACITY 180 ug/dl (250-450)
[2023-03-20] MEDS: HYDROCODONE/APAP 5/325MG TABLET PO PRN (01:15)
[2023-03-20] MEDS: IV D5/0.45 NACL 1,000 ML IV PRN ×2 (01:33→17:34)
[2023-03-20] MEDS: MORPHINE SULFATE INJ 2 MG/ML DISP.SYRIN IV PRN ×5 (02:23→19:14)
[2023-03-20 06:40] LABS: BASOPHILS # (AUTO) 0.1 K/uL (0.0-0.2); BASOPHILS % (AUTO) 0.9 % (0.0-2.0); EOSINOPHILS # (AUTO) 0.4 K/uL (0.0-0.7); EOSINOPHILS % (AUTO) 5.1 % (0.0-6.0); HEMATOCRIT 25 % (33-45); HEMOGLOBIN 8.2 g/dL (11.5-14.8); LYMPHOCYTES # (AUTO) 1.3 K/uL (0.8-4.8); LYMPHOCYTES % (AUTO) 17.7 % (20.0-44.0); MEAN CORPUSCULAR HEMOGLOBIN 26 PG (26.0-33.0); MEAN CORPUSCULAR HGB CONC 32 g/dl (31.0-36.0); MEAN CORPUSCULAR VOLUME 79 fL (82-100); MONOCYTES % (AUTO) 13.5 % (2.0-12.0); NEUTROPHILS # (AUTO) 4.5 K/uL (1.8-8.9); NEUTROPHILS % (AUTO) 62.8 % (43.0-81.0); PLATELET COUNT (AUTO) 527 K/uL (150-450); RED BLOOD CELL COUNT(AUTO) 3.18 MIL/uL (4.0-5.2); RED CELL DISTRIBUTION WIDTH 18.4 % (11.5-15.0); WHITE BLOOD COUNT (AUTO) 7.2 K/uL (4.3-11.0)
[2023-03-20 06:41] LABS: CALCIUM, SERUM 8.1 mg/dL (8.5-10.1); CREATININE 0.6 mg/dL (0.6-1.3); MAGNESIUM 2.1 mg/dL (1.8-2.4); PHOSPHORUS 2.6 mg/dL (2.5-4.9); POTASSIUM 3.9 mmol/L (3.5-5.1)
[2023-03-20 07:30] VITALS: BP 121/70; TEMP 98.6; O2SAT 97
[2023-03-20] MEDS ORDERED: [UNRECOGNIZED DRUG - OTHER] PO (07:45)
[2023-03-20] MEDS ORDERED: AMIN30LI2 PO (07:45)
[2023-03-20] MEDS ORDERED: TRAM50TA2 PO (07:45)
[2023-03-20] MEDS ORDERED: MAG30ORA GT (07:45)
[2023-03-20] MEDS ORDERED: DIPH1TAB PO (07:45)
[2023-03-20] MEDS: clonazePAM 1 MG TABLET PO SCH ×2 (08:26→16:19)
[2023-03-20] MEDS: SUCRALFATE 1 G/10 ML UDC PO SCH ×3 (08:26→16:19)
[2023-03-20] MEDS: PANTOPRAZOLE 40 MG/PACK PACK PO SCH (08:26)
[2023-03-20] MEDS: DOCUSATE SODIUM LIQ 100 MG/10 ML UDC PO SCH ×2 (08:26→16:19)
[2023-03-20] MEDS: FLUTICASONE/VILANTEROL 1 EACH BLST.W.DEV IH SCH (08:27)
[2023-03-20] MEDS ORDERED: DIPHENOXYLATE HCL/ATROP SULF 1 UDTAB TABLET PO PRN (10:00)
[2023-03-20] MEDS ORDERED: GABAPENTIN 100 MG CAPSULE PO PRN (10:00)
[2023-03-20] MEDS ORDERED: diphenhydrAMINE HCL ELIX 25 MG/10 ML UDC PO PRN (10:00)
[2023-03-20] MEDS ORDERED: TRAMADOL HCL 50 MG TABLET PO PRN (10:00)
[2023-03-20] MEDS: MULTIVITAMINS,THERAGRAN 1 UDTAB TABLET PO SCH (10:39)
[2023-03-20] MEDS: SOD FERRIC GLUC 125 MG in IV NS 0.9% 100 ML IV SCH (14:47)
[2023-03-20 15:08] LABS: THYROID STIMULATING HORMONE 2.195 uIU/mL (0.358-3.74)
[2023-03-20 16:17] VITALS: BP 112/72; TEMP 98.6; O2SAT 97
[2023-03-20] MEDS: PROSOURCE / PROSTAT (PYXIS) 30 ML UDC PO SCH (16:20)
[2023-03-20 20:00] VITALS: BP 108/73; TEMP 98.8; O2SAT 97
[2023-03-20] MEDS: TEMAZEPAM 15 MG CAPSULE PO PRN (20:20)
[2023-03-20] MEDS: QUETIAPINE FUMARATE 100 MG TABLET PO SCH (21:09)
[2023-03-21] MEDS: MORPHINE SULFATE INJ 2 MG/ML DISP.SYRIN IV PRN ×5 (00:04→18:14)
[2023-03-21 07:00] VITALS: BP 91/61; TEMP 98.8; O2SAT 97
[2023-03-21 07:04] LABS: BASOPHILS # (AUTO) 0.1 K/uL (0.0-0.2); BASOPHILS % (AUTO) 0.7 % (0.0-2.0); EOSINOPHILS # (AUTO) 0.4 K/uL (0.0-0.7); EOSINOPHILS % (AUTO) 5.6 % (0.0-6.0); HEMATOCRIT 26 % (33-45); HEMOGLOBIN 8.3 g/dL (11.5-14.8); LYMPHOCYTES # (AUTO) 0.9 K/uL (0.8-4.8); LYMPHOCYTES % (AUTO) 13.4 % (20.0-44.0); MEAN CORPUSCULAR HEMOGLOBIN 26 PG (26.0-33.0); MEAN CORPUSCULAR HGB CONC 32 g/dl (31.0-36.0); MEAN CORPUSCULAR VOLUME 80 fL (82-100); MONOCYTES % (AUTO) 15.3 % (2.0-12.0); NEUTROPHILS # (AUTO) 4.5 K/uL (1.8-8.9); PLATELET COUNT (AUTO) 525 K/uL (150-450); RED BLOOD CELL COUNT(AUTO) 3.25 MIL/uL (4.0-5.2); RED CELL DISTRIBUTION WIDTH 18.5 % (11.5-15.0); WHITE BLOOD COUNT (AUTO) 6.9 K/uL (4.3-11.0)
[2023-03-21 08:07] LABS: IMMUNOGLOBULIN A, SERUM 479 mg/dL (87-352); IMMUNOGLOBULIN G, SERUM 1447 mg/dL (586-1602)
[2023-03-21] MEDS: DOCUSATE SODIUM LIQ 100 MG/10 ML UDC PO SCH ×2 (08:17→16:54)
[2023-03-21] MEDS: clonazePAM 1 MG TABLET PO SCH ×2 (08:17→16:52)
[2023-03-21] MEDS: MULTIVITAMINS,THERAGRAN 1 UDTAB TABLET PO SCH (08:17)
[2023-03-21] MEDS: PANTOPRAZOLE 40 MG/PACK PACK PO SCH (08:17)
[2023-03-21] MEDS: SUCRALFATE 1 G/10 ML UDC PO SCH (08:17)
[2023-03-21] MEDS: PROSOURCE / PROSTAT (PYXIS) 30 ML UDC PO SCH ×2 (08:20→16:52)
[2023-03-21] MEDS: HYDROCODONE/APAP 5/325MG TABLET PO PRN ×4 (08:27→21:57)
[2023-03-21] MEDS: SUCRALFATE 1 G TABLET PO SCH ×3 (09:00→16:54)
[2023-03-21] MEDS: FLUTICASONE/VILANTEROL 1 EACH BLST.W.DEV IH SCH (09:49)
[2023-03-21 09:50] LABS: OCCULT BLOOD STOOL NEGATIVE (NEGATIVE)
[2023-03-21 10:07] LABS: FOLIC ACID 8.9 ng/mL (>3.0)
[2023-03-21 12:07] LABS: *SPE A/G RATIO 0.6 (0.7-1.7); *SPE ALBUMIN 2.2 g/dL (2.9-4.4); *SPE ALPHA-1-GLOBULIN 0.3 g/dL (0.0-0.4); *SPE ALPHA-2-GLOBULIN 0.9 g/dL (0.4-1.0); *SPE GLOBULIN, TOTAL 3.7 g/dL (2.2-3.9); *SPE M-SPIKE Not Observed g/dL (Not Observed); *SPE PROTEIN TOTAL 5.9 g/dL (6.0-8.5); *SPEGAMMA GLOBULIN 1.4 g/dL (0.4-1.8)
[2023-03-21] MEDS: IV D5/0.45 NACL 1,000 ML IV PRN (12:40)
[2023-03-21] MEDS ORDERED: IOHEXOL-300 100 ML VIAL IV ONE (13:31)
[2023-03-21] MEDS ORDERED: IV NS 0.9% 250 ML IV ONE (13:31)
[2023-03-21] MEDS: SOD FERRIC GLUC 125 MG in IV NS 0.9% 100 ML IV SCH (14:10)
[2023-03-21 16:00] VITALS: BP 97/61; TEMP 98.6; O2SAT 97
[2023-03-21 17:07] LABS: IMMUNOGLOBULIN M, SERUM 95 mg/dL (26-217)
[2023-03-21 20:00] VITALS: BP 113/66; TEMP 99.1; O2SAT 67
[2023-03-21] MEDS: TEMAZEPAM 15 MG CAPSULE PO PRN (20:47)
[2023-03-21] MEDS: QUETIAPINE FUMARATE 100 MG TABLET PO SCH (21:26)
[2023-03-22] MEDS: IV D5/0.45 NACL 1,000 ML IV PRN (03:35)
[2023-03-22] MEDS: MORPHINE SULFATE INJ 2 MG/ML DISP.SYRIN IV PRN ×3 (03:42→14:15)
[2023-03-22] MEDS: HYDROCODONE/APAP 5/325MG TABLET PO PRN ×3 (06:11→16:35)
[2023-03-22 06:22] LABS: BASOPHILS % (AUTO) 0.7 % (0.0-2.0); EOSINOPHILS # (AUTO) 0.5 K/uL (0.0-0.7); HEMATOCRIT 24 % (33-45); HEMOGLOBIN 7.6 g/dL (11.5-14.8); LYMPHOCYTES # (AUTO) 1.3 K/uL (0.8-4.8); LYMPHOCYTES % (AUTO) 18.7 % (20.0-44.0); MEAN CORPUSCULAR HEMOGLOBIN 25 PG (26.0-33.0); MEAN CORPUSCULAR HGB CONC 32 g/dl (31.0-36.0); MEAN CORPUSCULAR VOLUME 80 fL (82-100); MONOCYTES # (AUTO) 0.9 K/uL (0.1-1.30); MONOCYTES % (AUTO) 13.4 % (2.0-12.0); NEUTROPHILS # (AUTO) 4.1 K/uL (1.8-8.9); NEUTROPHILS % (AUTO) 60.2 % (43.0-81.0); PLATELET COUNT (AUTO) 496 K/uL (150-450); RED BLOOD CELL COUNT(AUTO) 3.01 MIL/uL (4.0-5.2); RED CELL DISTRIBUTION WIDTH 18.8 % (11.5-15.0); WHITE BLOOD COUNT (AUTO) 6.7 K/uL (4.3-11.0)
[2023-03-22 08:00] VITALS: BP 96/69; TEMP 98.4; O2SAT 99
[2023-03-22] MEDS: DOCUSATE SODIUM LIQ 100 MG/10 ML UDC PO SCH ×2 (08:16→16:07)
[2023-03-22] MEDS: PANTOPRAZOLE 40 MG/PACK PACK PO SCH (08:16)
[2023-03-22] MEDS: PROSOURCE / PROSTAT (PYXIS) 30 ML UDC PO SCH ×2 (08:16→16:08)
[2023-03-22] MEDS: FLUTICASONE/VILANTEROL 1 EACH BLST.W.DEV IH SCH (08:16)
[2023-03-22] MEDS: MULTIVITAMINS,THERAGRAN 1 UDTAB TABLET PO SCH (08:17)
[2023-03-22] MEDS: SUCRALFATE 1 G TABLET PO SCH ×3 (08:17→16:07)
[2023-03-22] MEDS: clonazePAM 1 MG TABLET PO SCH ×2 (08:17→16:07)
[2023-03-22] MEDS: SOD FERRIC GLUC 125 MG in IV NS 0.9% 100 ML IV SCH (14:27)
[2023-03-22 16:00] VITALS: BP 96/61; TEMP 98.8; O2SAT 98
== END 2023-03-22 19:50 | DRG 811 ==
LOC: ER 20:28 → MED 23:08
PROVIDERS: ADMIT Nurse Practitioner Acute Care; ATTEND Internal Medicine
PROC: 30233N1 Transfusion of Nonautologous Red Blood Cells into Peripheral Vein, Percutaneous Approach (ICD-10-PCS; principal; 2023-03-19)
DX: D50.9 Iron deficiency anemia, unspecified (principal); E43 Unspecified severe protein-calorie malnutrition; R64 Cachexia; Z68.1 Body mass index [BMI] 19.9 or less, adult; K86.1 Other chronic pancreatitis; E87.1 Hypo-osmolality and hyponatremia; D49.0 Neoplasm of unspecified behavior of digestive system; F32.9 Major depressive disorder, single episode, unspecified; D75.839 Thrombocytosis, unspecified; K44.9 Diaphragmatic hernia without obstruction or gangrene; J45.909 Unspecified asthma, uncomplicated; K72.90 Hepatic failure, unspecified without coma; G60.9 Hereditary and idiopathic neuropathy, unspecified; Z79.899 Other long term (current) drug therapy; K91.1 Postgastric surgery syndromes; Z88.0 Allergy status to penicillin; Z88.8 Allergy status to other drugs, medicaments and biological substances; Z79.51 Long term (current) use of inhaled steroids; R97.8 Other abnormal tumor markers; F29 Unspecified psychosis not due to a substance or known physiological condition; R63.0 Anorexia; J44.9 Chronic obstructive pulmonary disease, unspecified; E88.09 Other disorders of plasma-protein metabolism, not elsewhere classified; Z98.890 Other specified postprocedural states; Z87.19 Personal history of other diseases of the digestive system; M21.612 Bunion of left foot; M21.611 Bunion of right foot; Z82.5 Family history of asthma and other chronic lower respiratory diseases; F43.10 Post-traumatic stress disorder, unspecified; K21.9 Gastro-esophageal reflux disease without esophagitis; F41.9 Anxiety disorder, unspecified
CPT/HCPCS: 36415; 71045-TC; 71260-TC; 80048-TC; 80076-TC; 82272-TC; 82607-TC; 82728-TC; 82784; 83540-TC; 83690-TC; 83735-TC; 84100-TC; 84155; 84165; 84443-TC; 85025-TC; 85730-TC; 86334; 86850-TC; 87081-TC; A4223; G0378; J2270; J2405; J2916; J3490; J7030; J7042; J7050; P9016; Q9967